=== PATIENT | female | born 1950 | race Caucasian/White ===

== ENCOUNTER 2021-04-19 15:54 | Observation (INO) | payer MEDICARE ==
[2021-04-19] MEDS ORDERED: Dextrose 5% in Water 1,000 ML IV PRN (17:44)
[2021-04-19] MEDS ORDERED: Cyclobenzaprine 10 MG TAB PO PRN (17:44)
[2021-04-19] MEDS ORDERED: Dextrose 50% Abboject 50 ML SYRINGE SLOW IVP PRN (17:44)
[2021-04-19] MEDS ORDERED: Ondansetron PF 4 MG/2 ML Vial IVP PRN ×2 (17:44→17:45)
[2021-04-19] MEDS ORDERED: traMADol HCl 50 MG TAB PO PRN (17:44)
[2021-04-19] MEDS ORDERED: Ondansetron ODT 4 MG TAB PO PRN (17:44)
[2021-04-19] MEDS ORDERED: hydrALAZINE 20 MG/ML VIAL SLOW IVP PRN (17:44)
[2021-04-19] MEDS ORDERED: Acetaminophen 325 MG TAB PO PRN (17:45)
[2021-04-19] MEDS ORDERED: Ondansetron ODT 4 MG TAB SL PRN (17:45)
[2021-04-19] MEDS ORDERED: Oxazepam 10 MG CAP PO SCH (18:00)
[2021-04-19 19:48] VITALS: BMI 23.3
[2021-04-19] MEDS: Sodium Chloride 0.9% 1,000 ML IV SCH (19:57)
[2021-04-19] MEDS: Famotidine 20 MG TAB PO SCH (19:58)
[2021-04-19] MEDS: Oxazepam 10 MG CAP PO SCH (19:58)
[2021-04-19] MEDS: Ibuprofen 200 MG TAB PO SCH (19:58)
[2021-04-19 22:45] LABS: SARS-CoV-2 PCR by NAA Not Detected (NotDetected)
[2021-04-20] MEDS: Ibuprofen 200 MG TAB PO SCH ×2 (01:31→08:34)
[2021-04-20] MEDS: Oxazepam 10 MG CAP PO SCH ×3 (01:31→08:34)
[2021-04-20] MEDS: Sodium Chloride 0.9% 1,000 ML IV SCH (03:38)
[2021-04-20 06:26] LABS: #Basophils 0.1 thou/uL (0.0-0.2); #Eosinphils 0.1 thou/uL (0.0-0.7); #Lymphocytes 1.7 thou/uL (1.20-3.40); #Monocytes 0.5 thou/uL (0.11-0.59); #Neutrophils 2.8 thou/uL (1.40-6.50); %Basophils 1.3 % (0.0-1.0); %Eosinophils 1.5 % (0.0-10.0); %Monocytes 10.5 % (0.0-10.0); %Neutrophils 53.8 % (42.0-75.0); Hemoglobin 10.8 g/dL (12.0-16.0); Mean Corpuscular HGB CONC 35.2 g/dL (32.0-36.0); Mean Corpuscular Hemoglobin 34.7 pg (27.0-31.0); Mean Corpuscular Volume 98.7 fL (78.0-98.0); Mean Platelet Volume 7.1 fL (7.4-10.4); Platelet Count 137 thou/uL (130-400); RBC Distribution Width 11.4 % (11.5-14.5); Red Blood Cell (RBC) Count 3.12 mill/uL (4.20-5.40); White Blood Cell (WBC) Count 5.1 thou/uL (4.8-10.8)
[2021-04-20 06:48] LABS: Anion Gap 10 mmol/L (10-20); BUN (Urea Nitrogen) 4 mg/dL (9.8-20.1); Calc. Creatinine Clearance 64 mL/min (70-130); Calcium 8.3 mg/dL (7.8-10.44); Carbon Dioxide 23 mmol/L (23-31); Chloride 110 mmol/L (98-107); Glucose 82 mg/dL (83-110); Magnesium 1.7 mg/dL (1.6-2.6); Phosphorus 2.7 mg/dL (2.3-4.7); Potassium 3.6 mmol/L (3.5-5.1); Sodium 139 mmol/L (136-145)
[2021-04-20] MEDS: Famotidine 20 MG TAB PO SCH (08:34)
[2021-04-20] MEDS ORDERED: Acetaminophen 325 MG TAB PO PRN (09:13)
[2021-04-20 12:34] VITALS: BP 107/64; TEMP 97.3
== END 2021-04-20 15:17 | disposition home or self-care (01) ==
LOC: ERS 15:54 → INTOOBSV 16:35 → SURG A 16:35
PROVIDERS: ADMIT Surgery; ATTEND Surgery
DX: S71.131A Puncture wound without foreign body, right thigh, initial encounter (principal); I10 Essential (primary) hypertension; E11.9 Type 2 diabetes mellitus without complications; E78.00 Pure hypercholesterolemia, unspecified; K21.9 Gastro-esophageal reflux disease without esophagitis; F17.210 Nicotine dependence, cigarettes, uncomplicated; Z20.822 Contact with and (suspected) exposure to COVID-19; Z79.899 Other long term (current) drug therapy; Z88.0 Allergy status to penicillin; Z88.5 Allergy status to narcotic agent; W32.0XXA Accidental handgun discharge, initial encounter
CPT/HCPCS: 71045; 80048; 83735; 84100; 85025; 97139 ×4; G0378 ×2; U0003; U0005; 36415; 99285; G0390; J7050